=== PATIENT | female | born 1975 | race Caucasian/White ===

== ENCOUNTER 2017-05-13 11:19 | Emergency (ER) | payer OTHER ==
[~2017-05-13] VITALS: Ht 152.4 cm; Wt 53.3 kg
[~2017-05-13 11:19] MED LIST: Acetamin/Butalbital/Caffeine PO; NCDT7 TD
[2017-05-13 11:24] VITALS: TEMP 36.6; Ht 152.4 cm; Wt 53.3 kg
[2017-05-13] MEDS ORDERED: SODIUM CHLORIDE 0.9% 500ML 500 ML IV STA (12:07)
[2017-05-13] MEDS ORDERED: PANT40TA PO (12:08)
[2017-05-13] MEDS ORDERED: ASPI325T39 PO (12:08)
--- NOTE | 2017-05-13 12:11 | EMERGENCY ROOM VISIT NOTE ---
History Report prepared by Mariella: Corin Streeter Under the Supervision of: Dr. Jackie Sage M.D. First contact with patient: 11:28 Chief Complaint: OTHER COMPLAINT Stated Complaint: BLURRED VISION, SENT BY PSP History of Present Illness The patient is a 42 year old female who presents to the Emergency Room with complaints of persistent blurry vision to her bilateral eyes that began four days ago. She currently rates her discomfort as a 3/10 in severity. The patient states that she woke up on Friday morning and she had noticed blurry vision to both of her eyes. She denies any loss of vision. The patient states that she has a history of a 4 mm ophthalmic artery aneurysm and due to this, her PCP sent her to the emergency department for further evaluation and treatment. She reports intermittent headaches, but additionally reports a history of migraines. The patient reports dizziness with eye movement. She states that she last saw her eye doctor one year ago. The patient states that she last had an MRI done in November 2015. Source of History: patient Onset: four days ago Position: eye (bilateral) Symptom Intensity: 3/10 Quality: other (blurry vision) Timing: other (persistent) Associated Symptoms: + headache Review of Systems See HPI for pertinent positives & negatives. A total of 10 systems reviewed and were otherwise negative. Past Medical & Surgical Medical Problems: (1) Anemia Nos (2) Bronchitis (3) Cellulitis Nos Surgical Problems: (1) H/O: hysterectomy Family History Cancer Diabetes mellitus Kidney disease Social History Smoking Status: Current Every Day Smoker Drug Use: none Marital Status: single Housing Status: lives with family Occupation Status: employed Current/Historical Medications Scheduled Aspirin (Aspirin Ec), 325 MG PO DAILY Pantoprazole (Protonix), 40 MG PO BID Allergies Coded Allergies: Penicillins (Verified Allergy, Unknown, FACIAL SWELLING, 05/13/17) Physical Exam Vital Signs Date Time Temp Pulse Resp B/P (MAP) Pulse Ox O2 Delivery O2 Flow Rate FiO2 05/13/17 14:42 70 20 119/72 95 05/13/17 12:38 58 05/13/17 12:38 55 16 111/72 97 Room Air 05/13/17 11:24 36.6 76 16 133/84 100 Room Air Physical Exam Vital signs reviewed. General: Well-appearing female, in no significant distress. HEENT: No scleral icterus, PERRLA, neck supple. Atraumatic. Cardiovascular: Regular rate and rhythm, no extra sounds. Pulmonary: Clear to auscultation bilaterally, normal work of breathing. Abdomen: Soft, nontender, nondistended, positive bowel sounds. Musculoskeletal: Atraumatic, no peripheral edema. Neurologic: Patient awake alert and oriented x 3, full strength in all 4 extremities. Cranial nerves 2 through 12 grossly intact. Skin: Warm, dry, no rash Medical Decision & Procedures ER Provider Diagnostic Interpretation: CT results as stated below per my review and radiologist interpretation: HEAD ANGIO WITH CONTRAST HISTORY: 42 years-old Female presents with acute headache and blurred vision. 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 COMPARISON: CTA of the head 11/09/2014, brain MR 11/09/2014 TECHNIQUE: CTA of the head was obtained following the intravenous administration of 93 mL Optiray 320. Coronal and sagittal MIPS were obtained from the axial data set. All measurements were obtained according to NASCET criteria. A dose lowering technique was used consistent with the principals of TAYLOR. FINDINGS: The bilateral internal carotid arteries are widely patent. There has been interval placement of a stent graft within the cavernous portion of the right internal carotid artery with exclusion of the previously noted 3 mm aneurysm near the origin of the ophthalmic artery. No aneurysm is identified. No high-grade narrowing. The bilateral middle and anterior cerebral arteries are widely patent. The anterior communicating artery appears unremarkable. The left vertebral artery is dominant. Bilateral vertebral arteries are patent. The basilar artery is patent and within normal limits. origin of the left posterior cerebral artery. Bilateral posterior cerebral arteries are patent. Cerebral venous sinuses are patent. No acute intracranial abnormality identified. No hemorrhage, midline shift, abnormal extra-axial collections or hydrocephalus identified. Calvarium is intact. Mastoid air cells, and middle ear cavities are clear. Mild mucosal thickening of the ethmoid air cells. Soft tissues appear unremarkable. IMPRESSION: 1. Status post placement of a patent stent graft within the cavernous portion of the right internal carotid artery with exclusion of the previously noted 3 mm aneurysm near the origin of the right ophthalmic artery. 2. No evidence of aneurysm, high-grade stenosis, dissection or proximal branch occlusion. 3. origin of the left posterior cerebral artery. 4. No acute intracranial abnormality identified. The above report was generated using voice recognition software. It may contain grammatical, syntax or spelling errors. Electronically signed by: Praful Munoz M.D. 05/13/2017 1:45 PM Dictated Date/Time: 05/13/2017 1:38 PM Laboratory Results 05/13/17 12:24 Red Blood Count 4.28, Mean Corpuscular Volume 90.0, Mean Corpuscular Hemoglobin 29.9, Mean Corpuscular Hemoglobin Concent 33.2, Mean Platelet Volume 9.9, Neutrophils (%) (Auto) 53.2, Lymphocytes (%) (Auto) 39.0, Monocytes (%) (Auto) 5.6, Eosinophils (%) (Auto) 2.0, Basophils (%) (Auto) 0.1, Neutrophils # (Auto) 4.25, Lymphocytes # (Auto) 3.12, Monocytes # (Auto) 0.45, Eosinophils # (Auto) 0.16, Basophils # (Auto) 0.01 05/13/17 12:24 Test 05/13/17 12:24 White Blood Count 8.00 K/uL (4.8-10.8) Red Blood Count 4.28 M/uL (4.2-5.4) Hemoglobin 12.8 g/dL (12.0-16.0) Hematocrit 38.5 % (37-47) Mean Corpuscular Volume 90.0 fL (80-100) Mean Corpuscular Hemoglobin 29.9 pg (25-34) Mean Corpuscular Hemoglobin Concent 33.2 g/dl (32-36) Platelet Count 326 K/uL (130-400) Mean Platelet Volume 9.9 fL (7.4-10.4) Neutrophils (%) (Auto) 53.2 % Lymphocytes (%) (Auto) 39.0 % Monocytes (%) (Auto) 5.6 % Eosinophils (%) (Auto) 2.0 % Basophils (%) (Auto) 0.1 % Neutrophils # (Auto) 4.25 K/uL (1.4-6.5) Lymphocytes # (Auto) 3.12 K/uL (1.2-3.4) Monocytes # (Auto) 0.45 K/uL (0.11-0.59) Eosinophils # (Auto) 0.16 K/uL (0-0.5) Basophils # (Auto) 0.01 K/uL (0-0.2) RDW Standard Deviation 43.5 fL (36.4-46.3) RDW Coefficient of Variation 13.3 % (11.5-14.5) Immature Granulocyte % (Auto) 0.1 % Immature Granulocyte # (Auto) 0.01 K/uL (0.00-0.02) Anion Gap 6.0 mmol/L (3-11) Est Creatinine Clear Calc Drug Dose 79.8 ml/min Estimated GFR () 126.3 Estimated GFR (Non- 109.0 BUN/Creatinine Ratio 11.5 (10-20) Calcium Level 9.3 mg/dl (8.5-10.1) Total Bilirubin 0.3 mg/dl (0.2-1) Direct Bilirubin < 0.1 mg/dl (0-0.2) Aspartate Amino Transf (AST/SGOT) 11 U/L (15-37) Alanine Aminotransferase (ALT/SGPT) 13 U/L (12-78) Alkaline Phosphatase 59 U/L (45-117) Total Protein 7.4 gm/dl (6.4-8.2) Albumin 4.1 gm/dl (3.4-5.0) Laboratory results per my review. Medications Administered Medications (Trade) Dose Ordered Sig/Anca Route Start Time Stop Time Status Last Admin Dose Admin Sodium Chloride 500 ml @ 999 mls/hr Q31M STAT IV 05/13/17 12:07 05/13/17 12:37 DC 05/13/17 12:37 999 MLS/HR ECG Indication: other (blurry vision) Rate (beats per minute): 57 Rhythm: sinus bradycardia Findings: 1st degree AV block, no acute ischemic change, no ectopy, other ( possible previous anterior infarct) ED Course 1156: Past medical records reviewed. The patient was evaluated in room C12B. A complete history and physical examination was performed. 1207: Ordered 500 ml @ 999 mls/hr IV. 1418: I reevaluated the patient and she is resting comfortably. I discussed the test results with her and I discussed the treatment plan. She verbalized complete understanding and agreement. She is ready to go home. Medical Decision Differential Diagnosis: Intracranial hemorrhage, intracranial mass, migraine headache, tension headache , sinusitis, meningitis This pt was evaluated and appeared to be in no distress. IV access was obtained and lab work was drawn. Pt was discussed with Dr Mayes of [facility], who recommended CTA to look at stent placed. Visual acuity is not good with correction, but it is concerning that pt had sudden onset of blurry vision. Lab work is unrevealing. CTA is as above, no acute abnl. Pt was d/c to f/u with ophthalmology as scheduled. She will return to the ED for worsening of symptoms or any medical concerns. Medication Reconcilliation Current Medication List: was personally reviewed by me Impression Primary Impression: Blurry vision, bilateral Additional Impression: Carotid artery aneurysm Scribe Attestation The scribe's documentation has been prepared under my direction and personally reviewed by me in its entirety. I confirm that the note above accurately reflects all work, treatment, procedures, and medical decision making performed by me. Departure Information Dispostion Home / Self-Care Referrals No Doctor, Assigned (PCP) Forms HOME CARE DOCUMENTATION FORM, IMPORTANT VISIT INFORMATION, WORK / SCHOOL INSTRUCTIONS Patient Instructions [facility] Additional Instructions Diagnosis: Blurry vision, internal carotid artery aneurysm Follow-up with your manuscripts archivist as soon as possible for eye exam. Drink plenty of clear fluids. Continue medications as prescribed. Return to the ER for worsening of symptoms or any medical concerns. Problem Qualifiers
[2017-05-13] MEDS ORDERED: OPTIRAY 320 IV PRN (12:15)
[2017-05-13 12:41] LABS: BASO % 0.1 %; BASO ABS # 0.01 K/uL (0-0.2); COMPLETE YES; HEMATOCRIT 38.5 % (37-47); IG% 0.1 %; LYMPH ABS # 3.12 K/uL (1.2-3.4); MEAN CORPUSCULAR HEMOGLOBIN 29.9 pg (25-34); MEAN CORPUSCULAR HGB CONC 33.2 g/dl (32-36); MEAN PLATELET VOLUME 9.9 fL (7.4-10.4); MONO % 5.6 %; NEUT % 53.2 %; PLATELET COUNT 326 K/uL (130-400); RED BLOOD COUNT 4.28 M/uL (4.2-5.4)
[2017-05-13 12:59] LABS: AST/SGOT 11 U/L (15-37); BLOOD UREA NITROGEN 8 mg/dl (7-18); BUN/CREATININE RATIO 11.5 (10-20); CALCIUM 9.3 mg/dl (8.5-10.1); CARBON DIOXIDE 26 mmol/L (21-32); CHLORIDE 106 mmol/L (98-107); CREATININE 0.66 mg/dl (0.60-1.20); GLUCOSE 87 mg/dl (70-99); POTASSIUM 3.6 mmol/L (3.5-5.1); SODIUM 138 mmol/L (136-145)
[2017-05-13 13:03] LABS: ALKALINE PHOSPHATASE 59 U/L (45-117); ALT/SGPT 13 U/L (12-78)
--- NOTE | 2017-05-13 13:46 | DIAGNOSTIC IMAGING REPORT ---
HEAD ANGIO WITH CONTRAST HISTORY: 42 years-old Female presents with acute headache and blurred vision. 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 COMPARISON: CTA of the head 11/09/2014, brain MR 11/09/2014 TECHNIQUE: CTA of the head was obtained following the intravenous administration of 93 mL Optiray 320. Coronal and sagittal MIPS were obtained from the axial data set. All measurements were obtained according to NASCET criteria. A dose lowering technique was used consistent with the principals of TAYLOR. FINDINGS: The bilateral internal carotid arteries are widely patent. There has been interval placement of a stent graft within the cavernous portion of the right internal carotid artery with exclusion of the previously noted 3 mm aneurysm near the origin of the ophthalmic artery. No aneurysm is identified. No high-grade narrowing. The bilateral middle and anterior cerebral arteries are widely patent. The anterior communicating artery appears unremarkable. The left vertebral artery is dominant. Bilateral vertebral arteries are patent. The basilar artery is patent and within normal limits. origin of the left posterior cerebral artery. Bilateral posterior cerebral arteries are patent. Cerebral venous sinuses are patent. No acute intracranial abnormality identified. No hemorrhage, midline shift, abnormal extra-axial collections or hydrocephalus identified. Calvarium is intact. Mastoid air cells, and middle ear cavities are clear. Mild mucosal thickening of the ethmoid air cells. Soft tissues appear unremarkable. IMPRESSION: 1. Status post placement of a patent stent graft within the cavernous portion of the right internal carotid artery with exclusion of the previously noted 3 mm aneurysm near the origin of the right ophthalmic artery. 2. No evidence of aneurysm, high-grade stenosis, dissection or proximal branch occlusion. 3. origin of the left posterior cerebral artery. 4. No acute intracranial abnormality identified. The above report was generated using voice recognition software. It may contain grammatical, syntax or spelling errors. Electronically signed by: Praful Munoz M.D. 05/13/2017 1:45 PM Dictated Date/Time: 05/13/2017 1:38 PM
[2017-05-13 14:42] VITALS: BP 119/72; PULSE 70; O2SAT 95
--- NOTE | 2017-05-14 14:47 | EMERGENCY ROOM VISIT NOTE ---
ED Visit Note I was asked by Dr. Sage to perform slit lamp exam and intraocular pressures on this patient. Please see her dictation for full ED course and disposition. Intraocular pressures were measured at 14 mmHg in the left eye and 17 in the right eye. Slit Lamp Examination was performed of both eyes. The patient's face was comfortably rested on the chin guard of the slit lamp apparatus. The lights were dimmed and the affected eye(s) were thoroughly examined under microscopy. Examination was within normal limits. There was no evidence of ulceration or corneal injury. Anterior chamber is within normal limits.
== END 2017-05-13 14:43 | disposition home or self-care (01) ==
LOC: C.EDB 11:21 → C.EDC 14:43
DX: H53.8 Other visual disturbances (principal); I72.0 Aneurysm of carotid artery; I44.0 Atrioventricular block, first degree; D64.9 Anemia, unspecified; F17.200 Nicotine dependence, unspecified, uncomplicated; Z86.19 Personal history of other infectious and parasitic diseases; Z90.710 Acquired absence of both cervix and uterus; Z79.82 Long term (current) use of aspirin; Z79.899 Other long term (current) drug therapy; Z88.0 Allergy status to penicillin; Z80.9 Family history of malignant neoplasm, unspecified; Z83.3 Family history of diabetes mellitus; Z84.1 Family history of disorders of kidney and ureter

== ENCOUNTER → 2017-12-25 | Outpatient (CLI) | payer OTHER ==
[~2017-12-25] MED LIST changes: +ASPI325T39 PO; -Acetamin/Butalbital/Caffeine PO; -NCDT7 TD; +PANT40TA PO
--- NOTE | 2017-12-25 16:01 | MAMMOGRAPHY REPORT ---
BILATERAL DIGITAL DIAGNOSTIC MAMMOGRAM TOMOSYNTHESIS WITH CAD AND TARGETED BILATERAL ULTRASOUND: 12/25 CLINICAL HISTORY: The patient reports a new palpable right breast lump. History of prior bilateral br east biopsies. History of a surgical excision of a right breast mass which yielded a fibroadenoma. Al so history of a left breast biopsy in 2006, with pathology yielding benign findings including fibrocy stic change and adenosis. TECHNIQUE: The study was acquired using full field digital technology and interpreted from soft copy. Breast tomosynthesis in addition to standard 2D mammography was performed. Current study was also ev aluated with a Computer Aided Detection (CAD) system. Bilateral CC and MLO 2D and tomosynthesis imag es and spot magnification bilateral CC and ML views were obtained. COMPARISON: Comparison is made to exams dated: 07/16/2013 ultrasound, 07/16/2013 mammogram - [facility], 06/11/2006, 06/11/2006, 06/11/2006, and 06/11/2006. BREAST COMPOSITION: The tissue of both breasts is extremely dense, which lowers the sensitivity of ma mmography. FINDINGS: A triangle marker lugo the site of the palpable lump pointed out by the patient in the right upper i nner quadrant. A possible obscured mass is seen in this region, for which ultrasound was performed. A biopsy marker clip is seen within the left central breast from prior ultrasound-guided biopsy in 2 007 which yielded benign pathology. There is architectural distortion seen at the site of the biopsy marker clip, best seen on the tomosynthesis images. Additionally, there are increasing amorphous ca lcifications seen in this region compared to the 2014 exam. The total extent of the finding measures approximately 18 x 17 mm on the cc view. Additionally, there is an oval circumscribed 18 mm mass wi thin the right lateral breast which does not appear significantly changed in size compared to the 201 4 exam, however, there are new faint amorphous calcifications seen within the mass. The remainder of both breasts are not significantly changed, without suspicious masses, calcifications, or areas of a rchitectural distortion noted. Other bilateral nodularity is not significantly changed, including an oval circumscribed 2.2 cm mass in the left medial breast which is stable compared to the 2014 exam. Targeted ultrasound was performed of the area of the palpable lump pointed out by the patient, in the right 1:00 periareolar breast. At the site of the palpable lump there is a round circumscribed anec hoic mass which measures 1.9 x 1.3 x 2.5 cm. This corresponds with an obscured mammographic mass and is consistent with a benign simple cyst. Multiple other anechoic benign cysts were seen in the arlene cent breast. Additionally, there is a benign 3.2 cm cyst in the right 11:00 periareolar breast. In the right 9:00 breast, there is an oval isoechoic circumscribed mass which measures 1.6 x 0.5 x 1.5 c m. Punctate echogenic foci are seen within the mass which correspond with the mammographic calcificat ions. This corresponds with the stable mammographic mass which has new calcifications, and they repr esent a fibroadenoma although ultrasound-guided core needle biopsy is recommended to further evaluate the new calcifications. Additionally, there is a lobulated hypoechoic 2.0 x 0.8 x 1.2 cm mass in th e right 9:00 breast, 3 cm from the nipple, which likely represents a fibroadenoma. Targeted ultrasound was performed of the left breast in the region of the architectural distortion. In the left 1130 breast, 2 cm from the nipple, there is an echogenic biopsy marker clip. Surrounding the echogenic biopsy marker clip is ill-defined hypoechoic tissue with associated architectural dist ortion, which is difficult to make an accurate measurement due to the ill-defined nature but measures approximately 1.9 x 0.7 x 1.1 cm. This corresponds with the mammographic architectural distortion a nd calcifications. The finding is indeterminate for malignancy or a radial scar and repeat ultrasoun d-guided core needle biopsy is recommended. IMPRESSION: ACR BI-RADS CATEGORY 4: SUSPICIOUS, ULTRASOUND ACR BI-RADS CATEGORY 4: SUSPICIOUS 1. The palpable lump in the right 1:00 breast corresponds with a benign 2.5 cm simple cyst. 2. Architectural distortion and associated amorphous calcifications in the left 11:30 adjacent to a biopsy marker clip. The finding is indeterminate for malignancy or a radial scar and ultrasound-guid ed core needle biopsy is recommended for further evaluation, with specimen radiography to ensure samp ling of the calcifications. 3. Isoechoic 1.6 cm mass in the right 9:00 breast, which is stable in size compared to the 2014 exam although there are new amorphous calcifications within the mass. Although this likely represents a fibroadenoma, would recommend ultrasound-guided core needle biopsy with specimen radiography to ensur e benignity. A phone call was made to the physician's office to confirm faxed results were received. The patient has been verbally notified of the results. She tentatively scheduled the biopsies before leaving the department. Some breast cancers are not detected with mammography. A negative mammographic report should not radha y biopsy if a clinically suggestive mass is present. Portia Curran M.D. ah/:12/25/2017 12:29:07 Water Purifier Operator: Argelia Sterling, [facility]; Portia Curran [facility] sent: Abnormal 4/5 OVERALL STUDY BIRADS: 4 Suspicious abnormality
== END | disposition home or self-care (01) ==
LOC: C.MAMM 10:44
PROVIDERS: ATTEND Internal Medicine
DX: N63.11 Unspecified lump in the right breast, upper outer quadrant (principal); N63.12 Unspecified lump in the right breast, upper inner quadrant

== ENCOUNTER → 2018-01-02 | Outpatient (CLI) | payer OTHER ==
--- NOTE | 2018-01-02 11:54 | Discharge Instructions ---
Discharge Instructions Procedure Procedure Date: Jan 02, 2018. Reason for visit: Bilat Masses X 2. Discharge Discharge Date: Jan 02, 2018. Discharge Diagnosis: status post breast biopsy Instructions Activity Recommendations: Additional Limitations (see below) Return to School/Work: no limitations Recommended Home Diet: No Limitations Provider Instructions: ACTIVITY RECOMMENDATIONS: * No lifting, pushing, pulling or exercising the affected side for three days. RETURN TO SCHOOL/WORK: * You may return to work/school after the procedure, but do not perform any strenuous activities for 24 to 48 hours. MEDICATIONS: * Tylenol (two 325 mg) every four to six hours if needed for mild pain (if not allergic to Tylenol). DIET: * Resume previous diet. SPECIAL CARE INSTRUCTIONS: * Keep biopsy site dry for 24 hours. May shower after 24 hours, but do not soak (bathe) incision. * May remove Tegaderm (plastic patch) 24 hours after procedure * Leave the steri-strips on for one week. Allow the steri-strips to fall off by themselves. If not off after one week, you may remove them. You may place a Bandaid crosswise over the strips, if desired. * Apply ice 10 minutes on and 10 minutes off as needed. * Wear a bra at bedtime to sleep more comfortably for 2-3 days. * Your referring physician should have the results after approximately 5 to 7 business days. * Call for unusual bleeding, fever, drainage, etc or if you have any questions call during normal business hours or after hours call Dr Curran, . FOLLOW UP VISIT: Follow-up with Referring Physician as scheduled. Allergies Coded Allergies: Penicillins (Verified Allergy, Unknown, FACIAL SWELLING, 05/13/17) Charla Rubi Recommendations: Call your doctor if: * Temperature above 101 degrees * Pain not relieved by pain medicine ordered * There is increased drainage or redness from any incision * You have any unanswered questions or concerns. Your Doctors Instructions noted above were prepared by provider Portia Curran. Patient Signature Section: Patient Instructions Signature Page Sharon Mayberry Patient (or Guardian) Signature/Date: I have read and understand the instructions given to me by my caregivers. Caregiver/RN/Doctor Signature/Date: The above-named patient and/or guardian has received patient instructions on this date. + Original Patient Signature Page (only) stays with chart. Please make copy for patient.
--- NOTE | 2018-01-02 14:35 | MAMMOGRAPHY REPORT ---
THIS REPORT HAS BEEN AMENDED. ULTRASOUND GUIDED BIOPSY LEFT BREAST: 01/02/2018 CLINICAL HISTORY: Architectural distortion and associated amorphous calcifications in the left 1130 b reast. PATIENT CONSENT: The procedure, risks and benefits were discussed with the patient and informed writt en consent was obtained. A timeout was performed immediately prior to the procedure. PROCEDURE DESCRIPTION: With ultrasound guidance, aseptic technique, and lidocaine as the local anesth etic (1% lidocaine to anesthetize the skin and 1% lidocaine with epinephrine to anesthetize the deepe r tissues), the architectural distortion in the left 1130 breast was sampled 5 times with a 14-gauge Achieve biopsy needle. A biopsy clip was not placed as a clip was already present in this region fro m a remote biopsy. Direct pressure was applied to the site immediately post procedure until hemostas is was achieved. Postprocedure unilateral mammograms were not performed as a clip was not placed. S sary-Strips were placed over the site and covered with an Opsite patch. The patient tolerated the pro cedure without complication. She was given wound care instructions. A specimen radiograph was perfo rmed of the samples, which shows calcifications to be present within the samples. The specimens were sent to pathology for analysis. COMPARISON: Comparison is made to exams dated: 12/25/2017 ultrasound, 12/25/2017 mammogram, 07/16/2013 ultrasound, 07/16/2013 mammogram - [facility], and 06/11/2006. IMPRESSION: ULTRASOUND GUIDED BIOPSY Ultrasound-guided core needle biopsy of the architectural distortion and associated calcifications in the left at 1130 breast. A clip was not placed as a clip was already present in the region from a r emote biopsy. The patient will receive pathology results from her referring provider. Portia Curran M.D. ah/:01/02/2018 12:01:53 Telepathist: RT Carlo(Dahlia)(M), [facility] AMENDMENT: 01/07/2018 Portia Curran M.D. Pathology results from bilateral breast biopsies were reviewed on 01/07/2018. Pathology from biopsy of the right and 9:00 breast mass (mass A) showed adenosis with associated microcalcification. Patholo gy from biopsy of right 9:00 breast mass (mass B) showed adenosis. The pathology of both masses is benign and concordant with the imaging appearance. Pathology from ultrasound-guided biopsy of a left 11:30 breast mass showed focal changes consistent with a radial sclerosing lesion, adenosis with ass ociated microcalcification, and usual ductal hyperplasia. Given the presence of a radial sclerosing lesion on biopsy, surgical excision of the left 1130 breast mass is recommended. Amended BI-RADS: ACR BI-RADS Category 2: Benign
--- NOTE | 2018-01-02 14:35 | MAMMOGRAPHY REPORT ---
THIS REPORT HAS BEEN AMENDED. MULTIPLE ULTRASOUND GUIDED BIOPSIES RIGHT BREAST: 01/02/2018 CLINICAL HISTORY: Isoechoic mass with associated calcifications in the right 9:00 breast, 6 cm from t he nipple. PATIENT CONSENT: The procedure, risks and benefits were discussed with the patient and informed writt en consent was obtained. A timeout was performed immediately prior to the procedure. Preprocedure ultrasound was performed, which shows persistence of the isoechoic mass with associated calcifications in the right 9:00 breast, approximately 6 cm from the nipple. Another hypoechoic horacio d-appearing mass is seen within the right 9:00 breast, approximately 3 cm from the nipple. On review of prior pathology, this mass was not clearly previously biopsied, and although it likely represents a fibroadenoma, the decision was made to biopsy this mass as well. PROCEDURE DESCRIPTION: With ultrasound guidance, aseptic technique, and lidocaine as the local anesth etic (1% lidocaine to anesthetize the skin and 1% lidocaine with epinephrine to anesthetize the deepe r tissues), the isoechoic mass in the right 9:00 breast, 6 cm from the nipple (mass a) was sampled 3 times with a 14-gauge Achieve biopsy needle. Immediately thereafter, with ultrasound guidance, a ri bbon-shaped metallic localizer clip was placed at the biopsy site. A specimen radiograph was perform ed of the samples, which shows corresponding calcifications to be present within the specimens. Immediately thereafter and using the same skin incision, the hypoechoic mass in the right 9:00 breast , 3 cm from the nipple (mass "B") was sampled for times with a 14-gauge achieve biopsy needle. A win g shaped metallic localizer clip was placed at the biopsy site. Direct pressure was applied to the site immediately post procedure until hemostasis was achieved. Po stprocedure unilateral mammograms were performed to confirm clip placement; see separate dictation fo r details. Steri-Strips were placed over the site and covered with an Opsite patch. The patient nicole rated the procedure without complication. She was given wound care instructions. The specimens were sent to pathology for analysis. COMPARISON: Comparison is made to exams dated: 12/25/2017 ultrasound, 12/25/2017 mammogram, 07/16/2013 ultrasound, 07/16/2013 mammogram - [facility], and 06/11/2006. IMPRESSION: ULTRASOUND GUIDED BIOPSY 1. Ultrasound-guided core needle biopsy of the isoechoic mass and associated calcifications in the r ight 9:00 breast, 6 cm from the nipple (mass "A"), with clip placement. 2. The decision was made to also biopsy a hypoechoic solid mass in the right 9:00 breast, 3 cm from the nipple (mass B) which likely represents a fibroadenoma or other benign mass although it has not c learly been biopsied in the past. A clip was also placed. The patient will receive pathology results from her referring provider. Portia Curran M.D. ah/:01/02/2018 12:06:37 Upper Leather Cutter: RT Carlo(Dahlia)(M), [facility] AMENDMENT: 01/07/2018 Portia Curran M.D. Pathology results from bilateral breast biopsies were reviewed on 01/07/2018. Pathology from biopsy of the right and 9:00 breast mass (mass A) showed adenosis with associated microcalcification. Patholo gy from biopsy of right 9:00 breast mass (mass B) showed adenosis. The pathology of both masses is benign and concordant with the imaging appearance. Pathology from ultrasound-guided biopsy of a left 11:30 breast mass showed focal changes consistent with a radial sclerosing lesion, adenosis with ass ociated microcalcification, and usual ductal hyperplasia. Given the presence of a radial sclerosing lesion on biopsy, surgical excision of the left 1130 breast mass is recommended. Amended BI-RADS: ACR BI-RADS Category 2: Benign
--- NOTE | 2018-01-02 14:37 | MAMMOGRAPHY REPORT ---
UNILATERAL RIGHT DIGITAL DIAGNOSTIC MAMMOGRAM TOMOSYNTHESIS: 01/02/2018 CLINICAL HISTORY: Status post bilateral ultrasound-guided biopsies. TECHNIQUE: The study was acquired using full field digital technology and interpreted from soft copy. Breast tomosynthesis in addition to standard 2D mammography was performed. Postprocedural right CC and ML tomosynthesis images were obtained. COMPARISON: Comparison is made to exams dated: 12/25/2017 mammogram, 01/02/2018 ultrasound biopsy, 12/25 ultrasound, 07/16/2013 ultrasound, 07/16/2013 mammogram, and 01/02/2018 ultrasound biopsy - [facility]. BREAST COMPOSITION: The tissue of right breast is extremely dense, which lowers the sensitivity of ma mmography. FINDINGS: A new ribbon-shaped biopsy marker clip is seen within the biopsied mass and associated calc ifications in the right upper outer quadrant. A wing-shaped biopsy marker clip is seen at the site o f the biopsy hypoechoic mass in the right breast at approximately 9:00. No significant postbiopsy he matoma is seen. As a new clip was not placed in the left breast, postprocedural left mammograms are not obtained. IMPRESSION: POST PROCEDURE IMAGING FOR MARKER PLACEMENT New biopsy clips status post ultrasound-guided biopsy of the right breast 2. Pathology results are pending. Some breast cancers are not detected with mammography. A negative mammographic report should not radha y biopsy if a clinically suggestive mass is present. Portia Curran M.D. ah/:01/02/2018 12:14:10 Mule Tender: RT Carlo(R)(M), [facility] BI-RADS Code: Post Procedure Imaging For Marker Placement
== END | disposition home or self-care (01) ==
LOC: C.MAMM 10:52
PROVIDERS: ATTEND Internal Medicine
DX: N60.21 Fibroadenosis of right breast (principal); R92.0 Mammographic microcalcification found on diagnostic imaging of breast; N60.22 Fibroadenosis of left breast; N60.92 Unspecified benign mammary dysplasia of left breast